=== PATIENT | female | born 1985 | race Caucasian/White ===

== ENCOUNTER 2019-05-07 09:00 | Emergency (ER) | payer OTHER, BC ==
[2019-05-07] MEDS ORDERED: Iopamidol 755 Mg/ML 100 ML Bottle IV ONE (09:31)
[2019-05-07] MEDS: Sodium Chloride 0.9% 10 ML Syringe FLUSH PRN ×2 (09:43→11:22)
[2019-05-07] MEDS ORDERED: Sodium Chloride 0.9% 50 ML IV SCH (09:45)
--- NOTE | 2019-05-07 10:08 | EDM.PDOC ---
ED HPI GENERAL MEDICAL PROBLEM - General Chief Complaint: Chest Pain Stated Complaint: chest pain Time Seen by Provider: 05/07/19 09:20 Source of Information: Reports: Patient History Limitations: Reports: No Limitations - History of Present Illness INITIAL COMMENTS - FREE TEXT/NARRATIVE: 34 YO WF with PMH of breast CA who had port placed 05/01/2019 and her first round of chemotherapy 05/03/2019. Pt presents to ER complaining of pleuritic chest pain with associated exertional shortness of breath x 5 days. Pt reports her symptoms first began after chemotherapy on Monday. Pt denies any recent illnesses. Pt denies fever/chills, no cough or hemoptysis, no vomiting or diarrhea. Pt denies any lower extremity swelling or pain. Pt denies any recent travel or previous history of coagulopathies. Pt denies diaphoresis or light headedness. Pt states she feels fine while resting but feels palpitation and shortness of breath with exertion. Onset Date: 05/03/19 Duration: Day(s): (5) Location: Reports: Chest Quality: Reports: Sharp Severity: Moderate Improves with: Reports: Rest Worsens with: Reports: Breathing Associated Symptoms: Reports: Chest Pain, Shortness of Breath. Denies: Cough, cough w sputum, Diaphoresis, Fever/Chills, Nausea/Vomiting, Syncope, Weakness Treatments [employer]: Reports: Acetaminophen Mid-Sternal Chest Pain Score (Numeric/FACES): 7 - Related Data Allergies Allergy/AdvReac Type Severity Reaction Status Date / Time No Known Drug Allergies Allergy Cannot Verified 05/07/19 09:11 Remember Home Meds: Home Meds Acetaminophen/Diphenhydramine [Tylenol Pm Ex-Strength Caplet] 2 tab PO BEDTIME PRN 05/07/19 [History] Amitriptyline [Elavil] 50 mg PO BEDTIME 05/07/19 [History] Carboxymethylcellulose Sodium [Refresh Plus 0.5%] 1 drop EYEBOTH Q2H PRN [History] Cyclobenzaprine [Flexeril] 5 mg PO BEDTIME PRN 05/07/19 [History] Lidocaine/Prilocaine [EMLA Crm] 1 applic TOP ASDIRECTED PRN 05/07/19 [History] OLANZapine [ZyPREXA] 5 mg PO ASDIRECTED 05/07/19 [History] Ondansetron [Zofran] 8 mg PO TID PRN 05/07/19 [History] Prochlorperazine Maleate [Compazine] 10 mg PO QID PRN 05/07/19 [History] Rizatriptan Benzoate [Rizatriptan] 5 mg PO Q2H PRN 05/07/19 [History] buPROPion HCl [Wellbutrin Xl] 150 mg PO DAILY 05/07/19 [History] ED ROS GENERAL - Review of Systems Review Of Systems: See Below Constitutional: Reports: No Symptoms HEENT: Reports: No Symptoms Respiratory: Reports: Shortness of Breath Cardiovascular: Reports: Chest Pain Endocrine: Reports: No Symptoms GI/Abdominal: Reports: No Symptoms : Reports: No Symptoms Musculoskeletal: Reports: No Symptoms Skin: Reports: No Symptoms Neurological: Reports: No Symptoms Psychiatric: Reports: No Symptoms Hematologic/Lymphatic: Reports: No Symptoms Immunologic: Reports: No Symptoms ED EXAM, GENERAL - Physical Exam Exam: See Below Exam Limited By: No Limitations General Appearance: Alert, WD/WN, No Apparent Distress Head: Atraumatic, Normocephalic Neck: Normal Inspection, Supple, Non-Tender, Full Range of Motion Respiratory/Chest: No Respiratory Distress, Lungs Clear, Normal Breath Sounds, No Accessory Muscle Use, Chest Non-Tender Cardiovascular: Normal Peripheral Pulses, Regular Rate, Rhythm, No Edema, No Gallop, No JVD, No Murmur, No Rub GI/Abdominal: Normal Bowel Sounds, Soft, Non-Tender, No Organomegaly, No Distention, No Abnormal Bruit, No Mass Back Exam: Normal Inspection, Full Range of Motion, NT Extremities: Normal Inspection, Normal Range of Motion, Non-Tender, Normal Capillary Refill, No Pedal Edema Neurological: Alert, Oriented, CN II-XII Intact, Normal Cognition, Normal Gait, Normal Reflexes, No Motor/Sensory Deficits Psychiatric: Normal Affect, Normal Mood Skin Exam: Warm, Dry, Intact, Normal Color, No Rash Lymphatic: No Adenopathy EKG INTERPRETATION EKG Date: 05/07/19 Time: 09:59 Rhythm: NSR Rate (Beats/Min): 95 [place]: Normal P-Wave: Present QRS: Normal ST-T: Normal QT: Normal Comparison: NA - No Prior EKG Course - Vital Signs Last Recorded V/S: Last Vital Signs Temp 36.4 C 05/07/19 09:06 Pulse 105 H 05/07/19 09:06 Resp 19 05/07/19 09:06 BP 132/72 05/07/19 09:06 Pulse Ox 96 05/07/19 09:06 - Orders/Labs/Meds Orders: Active Orders 24 hr Category Date Time Status EKG Documentation Completion [RC] ASDIRECTED Care 05/07/19 09:42 Active Peripheral IV Care [RC] . DIRECTED Care 05/07/19 09:30 Active Ketorolac [Toradol] Med 05/07/19 11:05 Once 30 mg IVPUSH ONETIME ONE Sodium Chloride 0.9% [Normal Saline] 100 ml Med 05/07/19 10:15 Active IV ASDIRECTED Sodium Chloride 0.9% [Normal Saline] 50 ml Med 05/07/19 09:45 Active IV ASDIRECTED Sodium Chloride 0.9% [Saline Flush] Med 05/07/19 09:28 Active 10 ml FLUSH Q8HR PRN Peripheral IV Insertion Adult [OM.PC] Routine Oth 05/07/19 09:28 Ordered Medication Orders Sodium Chloride (Normal Saline) 50 mls @ 200 mls/min IV ASDIRECTED TIEN Last Admin: 05/07/19 09:58 Dose: 200 mls/min Sodium Chloride (Normal Saline) 100 mls @ 200 mls/min IV ASDIRECTED [facility] Ketorolac Tromethamine (Toradol) 30 mg IVPUSH ONETIME ONE Stop: 05/07/19 11:06 Sodium Chloride (Saline Flush) 10 ml FLUSH Q8HR PRN PRN Reason: keep vein open Last Admin: 05/07/19 09:43 Dose: 10 ml Labs: Laboratory Tests 05/07/19 05/07/19 05/07/19 Range/Units 09:25 09:25 09:25 WBC 13.69 H (5.00-10.00) 10^3/uL RBC 4.08 (3.80-5.50) 10^6/uL Hgb 12.0 (12.0-16.0) g/dL Hct 35.6 L (37.0-47.0) % MCV 87.3 (82.0-92.0) fL MCH 29.4 (27.0-31.0) pg MCHC 33.7 (32.0-36.0) g/dL RDW 13.1 (11.5-14.5) % Plt Count 190 (150-400) 10^3/uL MPV 9.5 (7.4-10.4) fL Add Manual Diff Yes Neutrophils % (Manual) 90 H (50-70) % Band Neutrophils % 4 (4-12) % Lymphocytes % (Manual) 4 L (20-40) % Monocytes % (Manual) 1 L (2-8) % Eosinophils % (Manual) 1 (1-3) % Absolute Neutrophils 12.32 Band Neutrophils # 0.55 Lymphocytes # (Manual) 0.55 Monocytes # (Manual) 0.14 Eosinophils # (Manual) 0.14 PT 8.8 L (8.9-11.4) SEC INR 0.9 (0.9-1.1) APTT 24.7 (23.1-31.9) SEC Sodium 139 (136-145) mmol/L Potassium 3.7 (3.3-5.3) mmol/L Chloride 102 (98-115) mmol/L Carbon Dioxide 23.6 (21.0-32.0) mmol/L Anion Gap 17.1 H (5-15) mmol/L BUN 10 (6-25) mg/dL Creatinine 0.63 (0.51-1.17) mg/dL Est Cr Clr Drug Dosing 123.51 mL/min Estimated GFR (MDRD) > 60 mL/min Glucose 151 H (75 - 99) mg/dL Calcium 8.5 L (8.7-10.3) mg/dL Total Bilirubin 0.2 (0.2-1.0) mg/dL AST 23 (15-37) U/L ALT 36 (12-78) U/L Alkaline Phosphatase 117 H (46-116) IU/L Creatine Kinase 28 (26-276) U/L CK-MB (CK-2) < 0.50 (0.00-4.30) ng/mL Troponin I 0.04 (0.00-0.070) ng/mL Total Protein 7.5 (6.4-8.2) g/dL Albumin 3.53 (3.00-4.80) g/dL Meds: Medications Generic Name Dose Route Start Last Admin Trade Name Freq PRN Reason Stop Dose Admin Sodium Chloride 50 mls @ 200 mls/min 05/07/19 09:45 05/07/19 09:58 Normal Saline IV 200 mls/min ASDIRECTED TIEN Administration Sodium Chloride 100 mls @ 200 mls/min 05/07/19 10:15 Normal Saline IV ASDIRECTED TIEN Ketorolac Tromethamine 30 mg 05/07/19 11:05 Toradol IVPUSH 05/07/19 11:06 ONETIME ONE Sodium Chloride 10 ml 05/07/19 09:28 05/07/19 09:43 Saline Flush FLUSH 10 ml Q8HR PRN Administration keep vein open Discontinued Medications Generic Name Dose Route Start Last Admin Trade Name Freq PRN Reason Stop Dose Admin Iopamidol 100 ml 05/07/19 09:31 05/07/19 09:58 [id number] (76%) IV 05/07/19 09:32 100 ml ONETIME ONE Administration - Radiology Interpretation Free Text/Narrative:: CT Chest- No PE, No infiltrate Departure - Departure Time of Disposition: 11:10 Disposition: Home, Self-Care 01 Condition: Good Clinical Impression: Chest wall pain - Discharge Information Instructions: Chest Wall Pain, [id number] Referrals: Angie Yepez, [facility] [Primary Care Provider] - Forms: ED Department Discharge Additional Instructions: 1. discharge home 2. motrin 600mg every 6 hours x 5 days 3. follow up with PCP for repeat CBC and further evaluation and treatment 4. return to ER for worsening symptoms Sepsis Event Note - Evaluation Sepsis Screening Result: No Definite Risk - Focused Exam Vital Signs: Vital Signs Temp Pulse Resp BP Pulse Ox 05/07/19 09:06 36.4 C 105 H 19 132/72 96 Date Exam was Performed: 05/07/19 Time Exam was Performed: 11:05 - My Orders Last 24 Hours: My Active Orders 05/07/19 09:28 Sodium Chloride 0.9% [Saline Flush] 10 ml FLUSH Q8HR PRN Peripheral IV Insertion Adult [OM.PC] Routine 05/07/19 09:30 Peripheral IV Care [RC] . DIRECTED 05/07/19 09:42 EKG Documentation Completion [RC] ASDIRECTED 05/07/19 09:45 Sodium Chloride 0.9% [Normal Saline] 50 ml IV ASDIRECTED 05/07/19 10:15 Sodium Chloride 0.9% [Normal Saline] 100 ml IV ASDIRECTED 05/07/19 11:05 Ketorolac [Toradol] 30 mg IVPUSH ONETIME ONE - Assessment/Plan Last 24 Hours: My Active Orders 05/07/19 09:28 Sodium Chloride 0.9% [Saline Flush] 10 ml FLUSH Q8HR PRN Peripheral IV Insertion Adult [OM.PC] Routine 05/07/19 09:30 Peripheral IV Care [RC] . DIRECTED 05/07/19 09:42 EKG Documentation Completion [RC] ASDIRECTED 05/07/19 09:45 Sodium Chloride 0.9% [Normal Saline] 50 ml IV ASDIRECTED 05/07/19 10:15 Sodium Chloride 0.9% [Normal Saline] 100 ml IV ASDIRECTED 05/07/19 11:05 Ketorolac [Toradol] 30 mg IVPUSH ONETIME ONE Assessment:: 1. Pleuritic chest pain- Probable chest wall pain 2. mild leukocytosis Plan: 1. discharge home 2. motrin 600mg every 6 hours x 5 days 3. follow up with PCP for repeat CBC and further evaluation and treatment 4. return to ER for worsening symptoms
[2019-05-07 10:09] LABS: ANION GAP 17.1 mmol/L (5-15); CHLORIDE,CL 102 mmol/L (98-115); SODIUM,NA 139 mmol/L (136-145)
[2019-05-07] MEDS ORDERED: Sodium Chloride 0.9% 100 ML IV SCH (10:15)
--- NOTE | 2019-05-07 10:52 | CT ---
[id number] CT/CTA Chest Exam: CTA Chest Clinical Data: SHORTNESS OF BREATH CHEST PAIN COMPARISON: NO PREVIOUS SIMILAR EXAM IS AVAILABLE FINDINGS: No pulmonary artery filling defects are seen Evaluation of distal pulmonary artery branches is limited There is no infiltrate There is no lung mass There is no mediastinal mass or adenopathy The great vessels are intact The chest port is seen IMPRESSION: NO CENTRAL LARGE EMBOLI. Edmond Stone MD 05/07/19 1645 Thank you for allowing us to participate in the care of your patient.
[2019-05-07] MEDS ORDERED: Ketorolac 30 MG/ML SDV IVPUSH ONE (11:05)
== END 2019-05-07 11:25 | disposition home or self-care (01) ==
LOC: KA.ED 09:00
DX: R07.89 Other chest pain (principal)
CPT/HCPCS: 36415; 71260; 80053; 82550; 82553; 84484; 85025; 85610; 85730; 93005; 96374; 99285-25; J1885; J7050; Q9967

== ENCOUNTER 2024-11-26 10:43 | Day surgery (SDC) | payer OTHER, BC ==
[2024-11-26] MEDS ORDERED: Sodium Chloride 0.9% 10 ML Syringe FLUSH PRN (10:45)
[2024-11-26] MEDS ORDERED: Propofol 200 MG/20 ML SDV ONE (10:59)
[2024-11-26] MEDS ORDERED: Midazolam 1 MG/ML 2 ML SDV ONE (10:59)
[2024-11-26] MEDS: Lactated Ringers 1,000 ML IV SCH (11:17)
== END 2024-11-26 13:12 | disposition home or self-care (01) ==
LOC: KA.SDS 10:43
PROVIDERS: ATTEND Family Medicine
DX: Z12.11 Encounter for screening for malignant neoplasm of colon (principal); K64.8 Other hemorrhoids; K58.1 Irritable bowel syndrome with constipation; E06.3 Autoimmune thyroiditis; E66.9 Obesity, unspecified; Z91.09 Other allergy status, other than to drugs and biological substances; Z87.891 Personal history of nicotine dependence; Z68.39 Body mass index [BMI] 39.0-39.9, adult; Z79.899 Other long term (current) drug therapy; Z86.0101 Personal history of adenomatous and serrated colon polyps
CPT/HCPCS: 00811; J2250; J2704; J7120